=== PATIENT | female | born 1945 | race Caucasian/White ===

== ENCOUNTER 2019-02-10 11:08 | Emergency (ER) | payer MEDICARE, MEDICAID ==
[2019-02-10 11:26] VITALS: BP 114/55
--- NOTE | 2019-02-10 12:07 | UC ---
UC General HPI - HPI Summary HPI Summary: 73 year old woman comes with a one week history of feeling unwell. Past hx of obesity, elevated cholesterol and trigeminal neuralgia, but denies any history of heart disease or COPD. Appetite has been decreased, and she has had loose stools daily, 2 or 3 times per day. Off and on she has had fever and cough. Although not stating that she is short of breath, she felt improved after 15 minutes of oxygen at 2 liters, given because her sat was at 92. She is not tachycardic or tachypneic. Post walking to the bathroom without oxygen, she desaturates to 88%, without chest pain, but increase in respiratory rate. - History of Current Complaint Chief Complaint: UCGeneralIllness Stated Complaint: FEVER/SHAKES/SOB Time Seen by Provider: 02/10/19 11:56 Hx Obtained From: Patient Onset/Duration: Gradual Onset, Lasting Days - 6-7 Onset Severity: Mild Current Severity: Moderate Pain Intensity: 0 Associated Signs & Symptoms: Positive: Cough, Diarrhea, Decreased Oral Intake, Nausea. Negative: Edema - Allergy/Home Medications Allergies/Adverse Reactions: Allergies Allergy/AdvReac Type Severity Reaction Status Date / Time amoxicillin [From Augmentin] Allergy Rash Verified 02/10/19 11:16 cephalexin Allergy Rash Verified 02/10/19 11:16 clavulanic acid Allergy Rash Verified 02/10/19 11:16 [From Augmentin] Home Medications: Home Medications Atorvastatin* [Lipitor*] 20 mg PO DAILY 02/10/19 [History Confirmed 02/10/19] Carbamazepine [Carbatrol] 2 tab PO DAILY 02/10/19 [History Confirmed 02/10/19] Cholecalciferol TAB* [Vitamin D TAB*] 1,000 unit PO DAILY 02/10/19 [History Confirmed 02/10/19] Citalopram TAB* [CeleXA TAB*] 20 mg PO DAILY 02/10/19 [History Confirmed ] traZODone TAB* [Desyrel TAB*] 50 mg PO BEDTIME 02/10/19 [History Confirmed 02/10] PMH/Surg Hx/FS Hx/Imm Hx - Additional Past Medical History Additional PMH: obese Endocrine History: Dyslipidemia Neurological History: Other - trigeminal neuralgia Psychological History: Depression - takes citaloprim, mood stable. - Surgical History Surgical History: Yes Surgery Procedure, Year, and Place: cholecystecomy. Lt knee replacement. hernia x2. spine 2007 - Family History Known Family History: Positive: Unknown - she is uncertain. - Social History Occupation: Retired Lives: With Family - lives with her ex-. Alcohol Use: None Substance Use Type: None Smoking Status (MU): Never Smoked Tobacco Review of Systems All Other Systems Reviewed And Are Negative: Yes Constitutional: Positive: Fever - subjective, has felt warm and sweaty off and on, Fatigue Skin: Positive: Negative Eyes: Positive: Negative ENT: Positive: Negative Respiratory: Positive: Shortness Of Breath, Cough Cardiovascular: Positive: Negative Gastrointestinal: Positive: Diarrhea, Nausea. Negative: Vomiting Genitourinary: Positive: Negative Motor: Positive: Weakness Neurovascular: Positive: Negative Musculoskeletal: Positive: Myalgia. Negative: Arthralgia, Edema Neurological: Positive: Weakness Psychological: Positive: Negative Is Patient Immunocompromised?: No Physical Exam Triage Information Reviewed: Yes Appearance: Obese - Elderly woman, poor hygiene. Alert and in no distress. Vital Signs: Initial Vital Signs Temp 98.8 F 02/10/19 11:17 Pulse 73 02/10/19 11:17 Resp 18 02/10/19 11:17 BP 114/55 02/10/19 11:17 Pulse Ox 93 02/10/19 11:17 Eyes: Positive: Conjunctiva Clear ENT: Positive: Pharynx normal Neck: Positive: Supple, Nontender, No Lymphadenopathy Respiratory: Positive: Normal breath sounds, No respiratory distress, No accessory muscle use. Negative: Crackles, Wheezing Cardiovascular: Positive: RRR, No Murmur Abdomen Description: Positive: Nontender Musculoskeletal Exam: Normal Musculoskeletal: Positive: No Edema Neurological: Positive: Alert, Muscle Tone Normal Psychological Exam: Normal Skin Exam: Normal Diagnostics - Radiology No standard instances Radiology Interpretation Completed By: Radiologist - Patient Name: HUMERA CRUZ Medical Record#: [id number] Ordering Physician: Joana Treviño MD Acct.#: [id number] : Age: 73 Sex: F Location: [facility] Exam Date: 02/10/19 1228 ADM Status: PRE ER Order Information: CHEST PA & LAT 2 VWS Accession Number: [id number] CPT: 73515 HISTORY: low oxygen saturation, unwell for a week. COMPARISONS: None relevant available at the time of dictation. VIEWS: 4: Frontal dual- energy and lateral views of the chest. FINDINGS: CARDIOMEDIASTINAL SILHOUETTE: The cardiomediastinal silhouette is normal. ALEKSANDR: The aleksandr are normal. PLEURA: The costophrenic angles are sharp. No pleural abnormalities are noted. LUNG PARENCHYMA: There is hyperinflation with flattening of the diaphragm and expansion of the AP diameter of the chest. ABDOMEN: The upper abdomen is clear. There is no subphrenic gas. BONES AND SOFT TISSUES: There is diffuse osteopenia. Degenerative changes are noted. OTHER: None. IMPRESSION: HYPERINFLATION, CONSISTENT WITH COPD. NO ACTIVE CARDIOPULMONARY DISEASE. <Electronically signed by Yusuf Alexander MD in OV> 02/10/19 1307 Dictated By: Yusuf Alexander MD Dictated Date/Time: 02/10/19 1305 Transcribed Date/Time: 02/10/19 1305 Copy to: CC:Joana Treviño MD; No Primary Care Phys,NOPCP Imaging - [facility] [address] [place] [address] ph ([phone]) ph ([phone] ) ph ([phone]) This report is only to be considered final once signed by the Provider(s) as displayed in the "<Electronically Signed by >" field (s). Absence of a signature indicates the report is in a draft status and still needs to be finalized. In the event this document was created by someone other than the signing Provider, the individual initiating the document will be listed in the "Entered by:" or "Dictated by:" jones. 1 of 1 - EKG Cardiac Rate: NL Cardiac Rhythm: Sinus: Normal Ectopy: None ST Segment: Normal Summary of EKG Findings: Normal sinus rhythm with left anterior fascicular hemiblock. No previous for comparison. Course/Dx - Course Course Of Treatment: One week history of malaise in a 73 year old woman whose past history of vague. Chest xray without acute disease but consistent with COPD. She is hypoxic without tachypena or tachycardia, suggesting a chronic issue. We have tried to contact her primary care office for further information without success (no answer, then out to lunch.). ADD: office contacted, and her sats at her primary run 90 to 93%. - Differential Dx - Multi-Symptom Differential Diagnoses: Sepsis, Other - pneumonia, CHF - Diagnoses Provider Diagnosis: Hypoxia, Fatigue Discharge ED - Sign-Out/Discharge Documenting (check all that apply): Patient Departure All imaging exams completed and their final reports reviewed: Yes - Discharge Plan Condition: Guarded Disposition: AGAINST MEDICAL ADVICE Patient Education Materials: Hypoxia (ED) Referrals: No Primary Care Phys,NOPCP [Primary Care Provider] - Additional Instructions: I AM CONCERNED THAT YOU HAVE LOW OXYGEN LEVELS WITHOUT AN APPARENT REASON. IN SUCH CIRCUMSTANCES, WE USUALLY ADVISE EMERGENCY ROOM ASSESSMENT TO TEST FOR PROBLEMS SUCH HEART FAILURE OR BLOOD CLOTS. YOUR OXYGEN LEVELS ALSO RUN ON THE LOW SIDE AT YOUR DOCTOR'S OFFICE. CHEST XRAY SUGGESTS THAT YOU MIGHT HAVE SOME EMPHYSEMA, BUT MORE TESTING IS NEEDED TO PROVE THIS. YOUR OXYGEN LEVELS WENT LOW 88% HERE TODAY WHEN YOU WALKED. FLU TESTING IS NEGATIVE. REST AT HOME, AND FOLLOW UP WITH YOUR DOCTOR. IF YOU BECOME MORE SHORT OF BREATH , PLEASE CALL 911 AND GO TO THE EMERGENCY ROOM. - Billing Disposition and Condition Condition: GUARDED Disposition: Against Medical Advice
[2019-02-10 12:29] LABS: Influenza A Molecular NEGATIVE (Negative); Influenza B Molecular NEGATIVE (Negative)
== END 2019-02-10 13:33 | disposition left against medical advice (07) ==
LOC: UCCORT 11:08
DX: R09.02 Hypoxemia (principal); R53.83 Other fatigue; E66.9 Obesity, unspecified; E78.5 Hyperlipidemia, unspecified; F32.9 Major depressive disorder, single episode, unspecified; G50.0 Trigeminal neuralgia; Z88.0 Allergy status to penicillin; Z88.1 Allergy status to other antibiotic agents; Z79.899 Other long term (current) drug therapy
CPT/HCPCS: 71046; 93005; 99212; G0463